=== PATIENT | male | born 1980 | race Caucasian/White ===

== ENCOUNTER 2023-02-17 17:14 | Emergency (ER) | payer OTHER ==
[2023-02-17 17:56] VITALS: BP 122/73; PULSE 82; RESP 20; TEMP 98.2; BMI 41.5
[2023-02-17] MEDS ORDERED: ACETAMINOPHEN 500 MG TABLET (FP) PO ONE (19:24)
[2023-02-17] MEDS ORDERED: ACETAMINOPHEN 325 MG TABLET (FP) ONE (19:53)
[2023-02-17 19:58] LABS: BASO % 0.4 % (0-2.0); EOS % 0.9 % (0-4.5); HEMATOCRIT 44.1 % (35.4-49); HEMOGLOBIN 14.6 GM/dL (11.7-16.9); LYMPH % 19.3 % (8-40); MCH 28.2 pg (25.7-33.7); MCHC 33.1 g/dl (32.0-35.9); MEAN CELL VOLUME 85.3 fl (80-96); MEAN PLT VOLUME 7.3 fl (7.5-11.1); MONO % 7.7 % (3.8-10.2); NEUT % 71.7 % (42.8-82.8); PLATELET COUNT 329 10^3/uL (134-434); RBC 5.16 M/mm3 (4.00-5.60); RDW 14.3 % (11.9-15.9); WHITE BLOOD COUNT 10.3 K/mm3 (4.0-10.0)
[2023-02-17 20:05] LABS: INR 1.07 (0.83-1.09); PROTHROMBIN TIME (PATIENT) 12.4 SEC (9.7-13.0)
[2023-02-17 20:08] LABS: ACTIVATED PTT 30.4 SECONDS (25.2-36.5)
[2023-02-17 20:19] LABS: POTASSIUM 3.9 mmol/L (3.5-5.1)
[2023-02-17 20:21] LABS: BLOOD UREA NITROGEN 10.2 mg/dL (7-18); CALCIUM 9.4 mg/dL (8.5-10.1)
[2023-02-17 20:25] LABS: CREATININE 0.9 mg/dL (0.55-1.3)
[2023-02-17 20:26] LABS: BILIRUBIN,TOTAL 0.5 mg/dL (0.2-1); TOT PROT 7.5 g/dl (6.4-8.2)
[2023-02-17 21:03] LABS: ERYTHROCYTE SEDIMENTATION RATE 13 mm/hr (0-10)
== END 2023-02-18 01:25 | disposition home or self-care (01) ==
LOC: JER 17:14
DX: R51.9 Headache, unspecified (principal); R42 Dizziness and giddiness; H53.8 Other visual disturbances; S03.43XA Sprain of jaw, bilateral, initial encounter; H81.12 Benign paroxysmal vertigo, left ear; X58.XXXA Exposure to other specified factors, initial encounter
CPT/HCPCS: 36415; 70450-TC; 70496-TC; 80053; 85025; 85610; 85651; 85730; 86140; 86850; 86900; 86901; 99285-25; Q9967